=== PATIENT | male | born 1965 | race Caucasian/White ===

== ENCOUNTER 2017-02-08 20:48 | Emergency (ER) | payer MEDICAID, OTHER ==
[~2017-02-08] VITALS: Ht 167.6 cm; Wt 73.0 kg
[~2017-02-08 20:48] MED LIST: HYDR25TA PO; IBUP-1509 PO; LOVA20TA2 PO; NAPR-679 PO
[2017-02-09] MEDS ORDERED: HYDROCODONE/ACETAMINOPHEN 5/325MG TABLET PO ONE (02:15)
[2017-02-09 02:48] VITALS: BP 152/93
== END 2017-02-09 03:15 | disposition home or self-care (01) ==
LOC: ER 20:49
DX: M54.5 Low back pain (principal); I10 Essential (primary) hypertension
CPT/HCPCS: 99283; Z7610; 99282